=== PATIENT | female | born 1965 | race Two or more races ===

== ENCOUNTER 2020-02-04 08:00 | Inpatient (IN) | payer OTHER ==
[~2020-02-04] VITALS: Ht 157.5 cm; Wt 63.5 kg
[2020-02-04] MEDS ORDERED: VASOTEC10 MG PO (11:47)
[2020-02-04] MEDS ORDERED: PEPCID20 MG PO (11:47)
[2020-02-11] MEDS ORDERED: VITACEL TABLET1 EACH (08:04)
[2020-02-11] MEDS ORDERED: ATORVASTATIN CA20 MG (08:04)
[2020-02-13] MEDS ORDERED: TYLENOL ARTHRI650 MG PO (08:25)
== END 2020-02-13 09:56 | DRG 748 ==
LOC: OB/GYN 02-11 05:03 → O/R 02-11 05:03 → SURH 02-11 07:00 → OB/GYN 02-11 15:00
PROVIDERS: Urology; ADMIT Obstetrics & Gynecology; ATTEND Obstetrics & Gynecology
PROC: 0TSD0ZZ Reposition Urethra, Open Approach (ICD-10-PCS; 2020-02-11)
PROC: 0TJB8ZZ Inspection of Bladder, Via Natural or Artificial Opening Endoscopic (ICD-10-PCS; 2020-02-11)
PROC: 0JQC0ZZ Repair Pelvic Region Subcutaneous Tissue and Fascia, Open Approach (ICD-10-PCS; principal; 2020-02-11 07:00)
PROC: 0TSC0ZZ Reposition Bladder Neck, Open Approach (ICD-10-PCS; 2020-02-11 07:00)
DX: N81.11 Cystocele, midline (principal); N39.3 Stress incontinence (female) (male)